=== PATIENT | female | born 1995 | race Asian ===

== ENCOUNTER → 2023-09-21 11:16 | Outpatient (CLI) | payer OTHER, SELFPAY ==
[2023-09-21 12:49] LABS: Add Manual Diff / Slide Review NO; Basophils Absolute Auto 0 /uL (0-100); Basophils Percent Auto 0.3 % (0-2); Eosinophils Absolute Auto 0 /uL (0-450); Eosinophils Percent Auto 0.2 % (2-4); Hematocrit 38.3 % (36-46); Hemoglobin 13.2 g/dL (12.0-16.0); Lymphocytes Absolute Auto 2400 /uL (1100-4500); Lymphocytes Percent Auto 28.8 % (25-40); Mean Corpuscular HGB Conc 34.4 % (30-36); Mean Corpuscular Hemoglobin 31.7 PG (26-34); Mean Corpuscular Volume 92.1 fL (80-100); Monocytes Absolute Auto 500 /uL (0-900); Monocytes Percent Auto 6.4 % (3-14); Neutrophils Absolute Auto 5300 /uL (1500-7000); Neutrophils Percent Auto 64.3 % (50-75); Platelet Count 281 X10^3/uL (150-400); Red Blood Cell Count 4.16 X10^6/uL (4.0-5.2); Red Cell Distribution Width 11.8 % (11.6-14.8); White Blood Cell Count 8.2 X10^3/uL (4.5-11.0)
[2023-09-21 13:13] LABS: Alanine Aminotransferase 16 IU/L (<35); Albumin 4.4 g/dL (3.5-5.0); Albumin Globulin Ratio 1.4 (1.0-2.8); Alkaline Phosphatase 55 U/L (38-126); Aspartate Aminotransferase 33 IU/L (14-36); BUN Creatinine Ratio 17.2 (6-22); Bilirubin Total 0.7 mg/dL (0.2-1.3); Blood Urea Nitrogen 10 mg/dL (7-17); Calcium 9.1 mg/dL (8.4-10.2); Carbon Dioxide 26 mmol/L (22-32); Chloride 102 mmol/L (98-107); Cholesterol 203 mg/dL (140-199); Estimated Glomerular Filt Rate > 60 mL/min (>60); Globulin 3.2 g/dL (1.7-4.1); Glucose 72 mg/dL (70-100); HDL Cholesterol 87 mg/dL (40-60); HEMOLYSIS 21 (0-50); LDL Cholesterol Calculated 87 mg/dL (<100); Potassium 3.8 mmol/L (3.4-5.1); Sodium 135 mmol/L (137-145); Total Protein 7.6 g/dL (6.3-8.2); Triglycerides 145 mg/dL (35-150)
[2023-09-21 13:37] LABS: TSH w/ Reflex to FT4 1.64 uIU/mL (0.47-4.68)
== END ==
PROVIDERS: PCP Registered Nurse Diabetes Educator; Referring Provider Registered Nurse Diabetes Educator; Visit Provider Registered Nurse Diabetes Educator
DX: Z00.00 Encounter for general adult medical examination without abnormal findings (principal); R89.8 Other abnormal findings in specimens from other organs, systems and tissues; Z91.89 Other specified personal risk factors, not elsewhere classified; F41.9 Anxiety disorder, unspecified; F42.9 Obsessive-compulsive disorder, unspecified; E28.2 Polycystic ovarian syndrome; N92.6 Irregular menstruation, unspecified
CPT/HCPCS: 36415; 80053; 80061; 84443; 85025

== ENCOUNTER → 2023-10-27 10:09 | Outpatient (CLI) | payer OTHER, SELFPAY ==
--- NOTE | 2023-10-27 10:10 | DI.RAD.S_ITS ---
PROCEDURE: XR FINGER RT MIN 2V INDICATIONS: chronic Right thumb pain distal phalanx TECHNIQUE: AP hand, 3 views of the right thumb COMPARISON: None. FINDINGS: Bones: No fractures or dislocations. No suspicious bony lesions. No significant degenerative change. Soft tissues: No suspicious soft tissue calcifications. IMPRESSION: No acute bony abnormality. Dictated by: Gerber Martínez M.D. on 10/27/2023 at 11:15 Approved by: Gerber Martínez M.D. on 10/27/2023 at 11:17
--- NOTE | 2024-02-21 14:08 | PC.NURSE ---
Pt's , Ruddy called about referral last week. This RN reached out to Shakeel Nunes's team and onc referral placed. LVM on Ruddy's number about referring to [facility]. Emailed Kate HERRERA at [facility] about this referral.
== END ==
PROVIDERS: PCP Registered Nurse Diabetes Educator; Referring Provider Registered Nurse Diabetes Educator; Visit Provider Registered Nurse Diabetes Educator
DX: M79.644 Pain in right finger(s) (principal)
CPT/HCPCS: 73140

== ENCOUNTER 2024-07-19 19:34 | Emergency (ER) | payer OTHER, SELFPAY ==
[2024-07-19 19:38] VITALS: BP 132/84; PULSE 78; RESP 18; TEMP 37.1; O2SAT 97; BMI 18.3
--- NOTE | 2024-07-19 20:34 | ED_ITS ---
HPI - Extremity Problem General Chief complaint: Extremity Problem,Nontraumatic Stated complaint: lt leg swelling, poss blood clot Time Seen by Provider: 07/19/24 20:19 Source: patient Mode of arrival: Ambulatory History of Present Illness HPI Narrative: Patient is a 28-year-old female. Is on control. No chest pain. No shortness of breath. Here for evaluation of approximately 24 hours swelling to her left lower extremity. No recent travel. No prolonged immobilization but she does sit at a desk quite a bit. She was never had a blood clot in the past. She reports that her leg swelling has improved somewhat since the onset specifically since having the leg elevated has been here in the emergency department. Has not tried anything for symptoms prior to arrival. Related Data Previous Rx's Medication Instructions Recorded norgestimate 0.25 mg-ethinyl 1 tab PO DAILY #84 tabs 02/01/24 estradiol 35 mcg tablet escitalopram oxalate 10 mg tablet 30 mg (3 x 10 mg) PO DAILY #270 04/04/24 (Lexapro) tabs Allergies Allergy/AdvReac Type Severity Reaction Status Date / Time No Known Drug Allergies Allergy Unverified 04/04/24 14:38 Review of Systems Review of Systems ROS Unobtainable: All systems reviewed & are unremarkable except as noted in HPI and below Patient History Medical History Major depressive disorder, recurrent episode, moderate Acne Finger pain (~2020) Irregular menstrual cycle (~2019) Intussusception Anxiety (~2010) OCD (obsessive compulsive disorder) (~2010) PCOS (polycystic ovarian syndrome) (~2019) Surgical History Anesthesia History of intestinal surgery (~2002) Family History Mother Diabetes mellitus Mental health problem Brother Mental health problem Grandmother Breast cancer Social History Smoking Status: Never smoker Smoking Status: Never smoker Substance Use Type: does not use Exam Initial Vital Signs Initial Vital Signs: Vital Signs Temperature 98.7 F 07/19/24 19:38 Pulse Rate 78 07/19/24 19:38 Respiratory Rate 18 07/19/24 19:38 Blood Pressure 132/84 07/19/24 19:38 Pulse Oximetry 97 07/19/24 19:38 Oxygen Delivery Method Room Air 07/19/24 19:38 Const General: cooperative, comfortable and No ill appearing HENMT Head: normal to inspection and normocephalic Resp Effort & Inspection: normal respiratory effort Cardio Rate: regular rate Skin General: no rashes or lesions noted Extrem General: edema (Left lower extremity) Scores Wells' Criteria for DVT Active Cancer (Treatment within 6 months): No Bedridden recently >3 days or major surgery within 4 weeks: No Calf Swelling >3cm compared to other leg: Yes Collateral (nonvericose) superficial veins present: No Entire leg swollen: Yes Localized tenderness along the deep vein system: Yes Pitting edema, confined to symtomatic leg: Yes Paralysis, paresis, or recent plaster immobilization of ext: No Previously documented DVT: No Alternative dx to DVT as likely or more likely: No Wells' criteria for DVT: 4 Course Orders Ordered: ED Orders 07/19/24 20:34 US periph venous low extrem lt Stat 07/19/24 20:54 Basic Metabolic Panel Stat Complete Blood Count AUTO DIFF Stat Vital Signs Vital signs: Vital Signs - 8 hr 07/19/24 19:38 Temperature 98.7 F Pulse Rate 78 Respiratory Rate 18 Blood Pressure 132/84 Pulse Oximetry 97 Oxygen Delivery Method Room Air MDM - Extremity (Nontraumatic) Lab Data 07/19/24 20:54 07/19/24 20:54 Labs: Lab Results 07/19/24 Range/Units 20:54 WBC 6.0 (4.5-11.0) X10^3/uL RBC 4.07 (4.0-5.2) X10^6/uL Hgb 12.9 (12.0-16.0) g/dL Hct 38.7 (36-46) % MCV 95.0 (80-100) fL MCH 31.7 (26-34) PG MCHC 33.4 (30-36) % RDW 11.9 (11.6-14.8) % Plt Count 320 (150-400) X10^3/uL Neut % (Auto) 63.3 (50-75) % Lymph % (Auto) 28.6 (25-40) % Crawford % (Auto) 7.1 (3-14) % Eos % (Auto) 0.5 L (2-4) % Baso % (Auto) 0.5 (0-2) % Neut # (Auto) 3800 (5504-2213) /uL Lymph # (Auto) 1700 (3039-4792) /uL Crawford # (Auto) 400 (0-900) /uL Eos # (Auto) 0 (0-450) /uL Baso # (Auto) 0 (0-100) /uL Sodium 137 (137-145) mmol/L Potassium 4.2 (3.4-5.1) mmol/L Chloride 105 (98-107) mmol/L Carbon Dioxide 24 (22-32) mmol/L BUN 6 L (7-17) mg/dL Creatinine 0.59 (0.52-1.04) mg/dL Estimated GFR > 60 (>60) mL/min BUN/Creatinine Ratio 10.2 (6-22) Glucose 87 (70-100) mg/dL Calcium 8.8 (8.4-10.2) mg/dL Imaging Data US - DVT: Radiologist's Impression: PROCEDURE: US PERIPH VENOUS LOW EXTREM LT INDICATIONS: eval for DVT TECHNIQUE: Real-time imaging, as well as color and pulse Doppler interrogation, were performed of the lower extremity deep veins from the inguinal ligament to the popliteal fossa, with documentation of the visualized calf veins. COMPARISON: None. FINDINGS: The common femoral, femoral, popliteal, and the visualized calf veins are normally compressible, and free of intraluminal thrombus. Calf veins are not well seen secondary to edema. Color and pulse Doppler demonstrate normal phasic intraluminal flow. There is normal augmentation response to distal compression maneuver. IMPRESSION: No findings of lower extremity deep venous thrombosis. [facility] Narrative Medical decision making narrative: Patient does have unilateral swelling to the left lower extremity. Her electrolytes are unremarkable. Kidney functions unremarkable. She was not clinically in heart failure. There was no signs of cellulitis. No trauma. Ultrasounds negative for DVT. I discussed all this with the patient. She reports improvement of the swelling since keeping her leg elevated and I recommend that she continue to do this. Recommended she contact her primary provider for follow-up. She was given return precautions. She expressed understanding and agreement. Discharge Plan Departure Patient Disposition: Home Clinical Impression: Peripheral edema Instructions: DI for Peripheral Edema-Unilateral Activity Restrictions/Additional Instructions: Try to keep your legs elevated as much as possible for the next couple days. If you develop fevers or chest pain or shortness of breath or redness of the leg please return to the emergency department for new or worsening symptoms. Prescriptions: No Action escitalopram oxalate [Lexapro] 10 mg tablet 30 mg PO DAILY Qty: 270 0RF norgestimate-ethinyl estradiol 0.25-35 mg-mcg tablet 1 tab PO DAILY Qty: 84 3RF Referrals: Shakeel Nunes ARNP [Primary Care Provider] - Stand Alone Forms: Patient Portal/API
[2024-07-19 21:01] LABS: Add Manual Diff / Slide Review NO; Basophils Absolute Auto 0 /uL (0-100); Basophils Percent Auto 0.5 % (0-2); Eosinophils Absolute Auto 0 /uL (0-450); Eosinophils Percent Auto 0.5 % (2-4); Hematocrit 38.7 % (36-46); Hemoglobin 12.9 g/dL (12.0-16.0); Lymphocytes Absolute Auto 1700 /uL (1100-4500); Lymphocytes Percent Auto 28.6 % (25-40); Mean Corpuscular HGB Conc 33.4 % (30-36); Mean Corpuscular Hemoglobin 31.7 PG (26-34); Monocytes Absolute Auto 400 /uL (0-900); Monocytes Percent Auto 7.1 % (3-14); Neutrophils Absolute Auto 3800 /uL (1500-7000); Neutrophils Percent Auto 63.3 % (50-75); Platelet Count 320 X10^3/uL (150-400); Red Blood Cell Count 4.07 X10^6/uL (4.0-5.2); Red Cell Distribution Width 11.9 % (11.6-14.8)
[2024-07-19 21:23] LABS: BUN Creatinine Ratio 10.2 (6-22); Blood Urea Nitrogen 6 mg/dL (7-17); Calcium 8.8 mg/dL (8.4-10.2); Carbon Dioxide 24 mmol/L (22-32); Chloride 105 mmol/L (98-107); Estimated Glomerular Filt Rate > 60 mL/min (>60); Glucose 87 mg/dL (70-100); HEMOLYSIS < 15 (0-50); Potassium 4.2 mmol/L (3.4-5.1); Sodium 137 mmol/L (137-145)
== END 2024-07-19 21:40 | disposition home or self-care (01) ==
PROVIDERS: Emergency Provider Emergency Medicine; PCP Registered Nurse Diabetes Educator
DX: R60.0 Localized edema (principal)
CPT/HCPCS: 80048; 85025; 93971; 99281; 99284